=== PATIENT | female | born 1965 | race Caucasian/White ===

== ENCOUNTER 2024-09-25 12:29 | Emergency (ER) | payer OTHER ==
[2024-09-25 15:14] LABS: BASOPHILS ABSOLUTE AUTO 0.04 K/uL (0.00-0.10); BASOPHILS PERCENT AUTO 0.5 % (0.1-1.3); EOSINOPHILS PERCENT AUTO 1.4 % (0.0-5.4); HEMATOCRIT 37.6 % (34.3-46.0); HEMOGLOBIN 12.1 g/dL (11.2-15.5); IMMATURE GRAN ABSOLUTE AUTO 0.04 K/uL (0.00-0.23); IMMATURE GRAN PERCENT AUTO 0.5 % (0.0-0.7); LYMPHOCYTES ABSOLUTE AUTO 0.77 K/uL (0.8-3.3); LYMPHOCYTES PERCENT AUTO 10.4 % (11.4-47.7); MEAN CORPUSCULAR HEMOGLOBIN 28.2 pg (31.6-35.5); MEAN CORPUSCULAR HGB CONC 32.2 g/dL (31.6-35.5); MEAN CORPUSCULAR VOLUME 87.6 fL (81.4-99.0); MONOCYTES ABSOLUTE AUTO 0.62 K/uL (0.20-0.90); MONOCYTES PERCENT AUTO 8.4 % (3.3-12.6); NEUTROPHILS PERCENT AUTO 78.8 % (40.0-78.1); PLATELET COUNT,PLT 205 K/uL (130-375); RED BLOOD CELL COUNT 4.29 M/uL (3.77-5.24); WHITE BLOOD CELL COUNT,WBC 7.4 K/uL (3.2-11.0)
[2024-09-25] MEDS: Acetaminophen 500 MG Tab PO ONE (15:14)
[2024-09-25] MEDS: Pseudoephedrine 30 MG Tab PO ONE (15:14)
[2024-09-25 15:29] LABS: ANION GAP 8.3 mmol/L (5.0-14.0); CALCIUM 8.4 mg/dL (8.5-10.1); EST CRCL DRUG DOSING (CG) 45.65 mL/min; POTASSIUM,K 3.6 mmol/L (3.6-5.2)
== END 2024-09-25 16:35 | disposition home or self-care (01) ==
LOC: JP.ED 12:29
DX: U07.1 COVID-19 (principal); Z79.899 Other long term (current) drug therapy
CPT/HCPCS: 36415; 80048; 85025; 87428; 99284; A9270; 99283